=== PATIENT | female | born 1990 | race Caucasian/White ===

== ENCOUNTER 2016-09-07 14:44 | Emergency (ER) | payer MEDICAID ==
[2016-04-23 07:43] VITALS: BMI 21.4
[~2016-09-07 14:44] MED LIST: PERCOCET 5-3251 TAB PO
== END 2016-09-07 16:32 | disposition left against medical advice (07) ==
LOC: D.ER 14:44
DX: S69.91XA Unspecified injury of right wrist, hand and finger(s), initial encounter (principal); X58.XXXA Exposure to other specified factors, initial encounter; Y93.9 Activity, unspecified; Y92.9 Unspecified place or not applicable

== ENCOUNTER 2016-11-14 13:06 | Emergency (ER) | payer MEDICAID ==
[2016-04-23 07:43] VITALS: BMI 21.4
== END 2016-11-14 16:44 | disposition home or self-care (01) ==
LOC: D.ER 13:06
DX: S93.401A Sprain of unspecified ligament of right ankle, initial encounter (principal); W22.8XXA Striking against or struck by other objects, initial encounter; Y93.89 Activity, other specified; Y92.019 Unspecified place in single-family (private) house as the place of occurrence of the external cause

== ENCOUNTER 2017-02-12 11:36 | Emergency (ER) | payer MEDICAID ==
[2016-04-23 07:43] VITALS: BMI 21.4
== END 2017-02-12 14:03 | disposition home or self-care (01) ==
LOC: D.ER 11:36
DX: S61.451A Open bite of right hand, initial encounter (principal); W55.01XA Bitten by cat, initial encounter

== ENCOUNTER 2017-03-10 10:10 | Emergency (ER) | payer MEDICAID ==
[2016-04-23 07:43] VITALS: BMI 21.4
== END 2017-03-10 11:24 | disposition home or self-care (01) ==
LOC: D.ER 10:10
DX: T24.102A Burn of first degree of unspecified site of left lower limb, except ankle and foot, initial encounter (principal); T24.101A Burn of first degree of unspecified site of right lower limb, except ankle and foot, initial encounter; X10.2XXA Contact with fats and cooking oils, initial encounter; Y93.G3 Activity, cooking and baking; Y92.010 Kitchen of single-family (private) house as the place of occurrence of the external cause; T22.10XA Burn of first degree of shoulder and upper limb, except wrist and hand, unspecified site, initial encounter; F17.200 Nicotine dependence, unspecified, uncomplicated

== ENCOUNTER 2017-06-14 15:35 | Emergency (ER) | payer MEDICAID ==
[2016-04-23 07:43] VITALS: BMI 21.4
[2017-06-14 16:39] LABS: BASOPHILS 0.3 % (0-2); EOSINOPHILS 3.7 % (0-7); HEMATOCRIT 45.2 % (36.0-48.0); HEMOGLOBIN 15.5 g/dL (12-16); IMMATURE GRANULOCYTES 0.1 % (0-5); LYMPHOCYTES 21.3 % (15-50); MCHC 34.3 g/dL (31.0-37.0); MCV 90.4 fL (80.0-100.0); MEAN PLATELET VOLUME 9.8 fL (7.4-10.4); MONOCYTES 6.4 % (2-11); NEUTROPHILS 68.2 % (40-80); PLATELET COUNT 289 10x3/uL (130-400); RDW 12.5 % (11.5-14.5); WBC 7.6 10x3/uL (4.8-10.8)
[2017-06-14 16:39] LABS: APPEARANCE HAZY (CLEAR); BILIRUBIN NEGATIVE (NEGATIVE); COLOR YELLOW (YELLOW); GLUCOSE NEGATIVE (NEGATIVE); KETONE NEGATIVE (NEGATIVE); NITRITE NEGATIVE (NEGATIVE); PROTEIN NEGATIVE (NEGATIVE); SPECIFIC GRAVITY 1.015 (1.005-1.020); UROBILINOGEN NORMAL (NORMAL)
[2017-06-14 16:41] LABS: BACTERIA FEW /hpf (NONE SEEN); EPITHELIAL CELLS 25-50 /hpf (0-5); WHITE CELLS - URINE 0-5 /hpf (0-5)
[2017-06-14 16:41] LABS: HCG SERUM POSITIVE (NEGATIVE)
[2017-06-16] MEDS ORDERED: ZOVIRAX800 MG PO (14:07)
[2017-06-16] MEDS ORDERED: NORCO 7.5/325 T1 TA1 PO (14:07)
[2017-07-02] MEDS ORDERED: TYLENOL #4 W/CO1 TAB PO (12:12)
== END 2017-06-14 18:50 | disposition home or self-care (01) ==
LOC: D.ER 15:35
PROVIDERS: Emergency Medicine
DX: O03.9 Complete or unspecified spontaneous abortion without complication (principal); R10.30 Lower abdominal pain, unspecified

== ENCOUNTER 2017-06-17 05:31 | Day surgery (SDC) | payer MEDICAID ==
[~2017-06-17 05:31] MED LIST changes: +NORCO 7.5/325 T1 TA1 PO; +ZOVIRAX800 MG PO
[2017-06-17 06:18] VITALS: BP 95/63; BMI 20.2
--- NOTE | 2017-06-17 11:01 | NUR ---
DR TAYLOR CALLED, ORDERS RECEIVED. TORADOL 30MG IVP GIVEN
--- NOTE | 2017-06-17 11:20 | NUR ---
STATES PAIN IS BETTER AND WANTS TO GO HOME. IV REMOVED INTACT. DISCHARGE INSTRUCTIONS AND RX GIVEN, VOICED UNDERSTANDING.
--- NOTE | 2017-06-19 10:35 | OP ---
PATIENT NAME: CHUCK SULLIVAN MEDICAL RECORD: [id number] :86 LOCATION:[facility] ADMISSION DATE: SURGEON: SASCHA TAYLOR MD DATE OF OPERATION: 06/17/2017 PREOPERATIVE DIAGNOSIS: Missed . POSTOPERATIVE DIAGNOSIS: Missed . PROCEDURE: Dilation and evacuation. SURGEON: Sascha Taylor MD ANESTHESIOLOGIST: Geovany Howard MD ANESTHESIA: General anesthetic with endotracheal intubation. FINDINGS: Uterus is approximately 10-week size. Cervical os is dilated, easily accommodate a #9 curved suction curet. Scant to moderate amounts of products of conception removed at the time of curettage. SPECIMEN REMOVED: Products of conception. SPECIMEN DISPOSITION: Pathology. ESTIMATED BLOOD LOSS: Less than or equal to 50 cc. FLUIDS: 600 cc of lactated Ringer's. URINE OUTPUT: Quantity sufficient void prior to the procedure. COMPLICATIONS: None. DRAINS: None. INDICATIONS: The patient is a 26-year-old G3, para 2-0-0-2 at approximately 9 weeks' gestation with known missed . The patient had increased bleeding and cramping and was consented for dilation and evacuation. DESCRIPTION OF PROCEDURE: After informed consent was assured, the patient was taken to the operating room where anesthetic is obtained. The patient was placed in Ravindra stirrups and prepped and draped in usual sterile fashion. Weighted speculum was introduced and the cervix grasped with a single tooth tenaculum. The cervix is noted to be dilated and easily accommodated a #9 curved suction curet, which was passed to the fundus and suction applied. After several passes products of conceptions were removed. A #2 sharp curette was performed with good cry throughout. A single pass with the suction device removed all remaining clot and debris. The patient now has a single tooth tenaculum removed and ring forceps applied for hemostasis. The speculum was removed from the vagina. Sponge, lap and needle counts correct times 2. TRANSINT:[id number] Voice Confirmation ID: [id number] DOCUMENT ID: [id number] OPERATIVE REPORT [id number] LAURIECHUCK SASCHA TAYLOR MD at 1035 CC: [id number] DICTATION DATE: 06/17/17 0809 CLINIC CLERK: 06/17/17 1136 [facility] 06/17/17 [facility] [address] [place] [address]
[2017-07-02] MEDS ORDERED: TYLENOL #4 W/CO1 TAB PO (12:12)
== END 2017-06-17 11:20 | disposition home or self-care (01) ==
LOC: D.PAN → D.OPS 05:31 → D.PAN 07:30 → D.OPS 07:30
DX: O02.1 Missed abortion (principal); F17.200 Nicotine dependence, unspecified, uncomplicated; Z01.812 Encounter for preprocedural laboratory examination

== ENCOUNTER 2017-06-21 16:27 | Emergency (ER) | payer MEDICAID ==
[2017-07-02] MEDS ORDERED: TYLENOL #4 W/CO1 TAB PO (12:12)
== END 2017-06-21 17:00 | disposition left against medical advice (07) ==
LOC: D.ER 16:27
DX: Z02.9 Encounter for administrative examinations, unspecified (principal)

== ENCOUNTER 2017-07-05 05:20 | Day surgery (SDC) | payer MEDICAID ==
[2017-07-02 12:32] LABS: BASOPHILS 0.4 % (0-2); EOSINOPHILS 4.7 % (0-7); HEMATOCRIT 37.3 % (36.0-48.0); HEMOGLOBIN 12.3 g/dL (12-16); LYMPHOCYTES 31.6 % (15-50); MCH 30.2 pg (26.0-34.0); MCV 91.6 fL (80.0-100.0); MEAN PLATELET VOLUME 9.3 fL (7.4-10.4); MONOCYTES 5.7 % (2-11); NEUTROPHILS 57.6 % (40-80); PLATELET COUNT 295 10x3/uL (130-400); RBC 4.07 10x6/uL (4.00-5.40); RDW 12.3 % (11.5-14.5); WBC 4.7 10x3/uL (4.8-10.8)
[~2017-07-05 05:20] MED LIST changes: +TYLENOL #4 W/CO1 TAB PO
[2017-07-05 06:09] VITALS: BP 113/56; BMI 20.2
[2017-07-05 06:21] LABS: HCG URINE NEGATIVE (NEGATIVE)
[2017-07-05] MEDS ORDERED: PERCOCET 5-3251 TAB PO (10:20)
--- NOTE | 2017-07-05 10:20 | NUR ---
DISCHARGE INSTRUCTIONS REVIEWED WITH PATIENT AND SIGNIFICANT OTHER, PATIENT DISCHARGED HOME VIA WHEELCHAIR TO PRIVATE VEHICLE WITH SIGNIFICANT OTHER
--- NOTE | 2017-07-09 12:10 | OP ---
PATIENT NAME: CHUCK MELARA MEDICAL RECORD: [id number] :86 [facility] ADMISSION DATE: SURGEON: SASCHA TAYLOR MD DATE OF OPERATION: 07/05/2017 PREOPERATIVE DIAGNOSIS: Pelvic pain. POSTOPERATIVE DIAGNOSES: 1. Pelvic pain. 2. Active endometriosis. 3. Pelvic adhesive disease. 4. Right ovarian cyst. PROCEDURES PERFORMED: 1. Diagnostic laparoscopy. 2. Fulguration of peritoneal endometriosis. 3. Right cystectomy. 4. Lysis of adhesions. SURGEON: Sascha Taylor MD ANESTHESIOLOGIST: Geovany Howard MD ANESTHESIA: General anesthetic with endotracheal intubation. FINDINGS: A 3 cm simple cyst noted on the right ovary. Active endometriosis in the cul-de-sac. Adhesions of the large bowel to the right pelvic side wall. Ovaries are unremarkable as well as the tubes. The uterus is noted to be retroverted. SPECIMENS REMOVED: None. SPECIMEN Disposition: None applicable. ESTIMATED BLOOD LOSS: Minimal. FLUIDS: 600 of normal lactated Ringer's. URINE OUTPUT: Quantity sufficient with cath prior to procedure. INDICATIONS: The patient is a 26-year-old female recently status post incomplete with a D&E. The patient has reported increasing pelvic pain. This pain predates the miscarriage. Pain is intensified. She is requesting narcotics. Small cyst is noted on the ultrasound. The patient was taken to the operating room and consented for diagnostic laparoscopy and any indicated. DESCRIPTION OF PROCEDURE: After informed consent was assured, the patient was taken to the operating room where anesthetic is obtained. She is supine on the table and prepped and draped after draining her bladder. An incision was made in the umbilicus to accommodate a 5-mm bladeless trocar, which is inserted without difficulty and pneumoperitoneum developed. Accessory ports now placed in the midline left lower quadrant. A blunt probe was used to manipulate the bowel free the pelvis with the patient in Trendelenburg position. The cul-de-sac was inspected. No active endometriosis discovered. Using a OPERATIVE REPORT [id number] GERMÁNValerioCHUCK monopolar hook, this endometriosis is cauterized. The right ovary is now grasped at the hilum and the capsule overlying the cystic mass is opened. The cyst is dissected free and the edges of the dissection cauterized to obtain hemostasis. Pelvis is copiously irrigated and irrigant removed. Inspection of the abdomen reveals are free liver edge and adhesions of the large bowel to the right pelvic sidewall. These were taken down, taken the hook and going along the edge of the abdominal wall. After the adhesions were taken down, the pelvis again was inspected. Adequate hemostasis is noted and the pneumoperitoneum was released as accessory trocars were removed. Primary trocars were removed and all sites closed with Monocryl and Dermabond. Sponge, lap and needle count is correct times 2 at the close of this procedure. TRANSINT:[id number] Voice Confirmation ID: [id number] DOCUMENT ID: [id number] SASCHA TAYLOR MD at 1210 CC: [id number] DICTATION DATE: 07/05/17 0835 CARPET TECHNICIAN: 07/05/17 1026 [facility] 07/05/17 [facility] [address] [place] [address]
== END 2017-07-05 10:20 | disposition home or self-care (01) ==
LOC: D.PAN 05:20 → D.OPS 07:30 → D.PAN 10:20
PROVIDERS: Obstetrics & Gynecology
DX: N80.3 Endometriosis of pelvic peritoneum (principal); N83.291 Other ovarian cyst, right side; N85.4 Malposition of uterus; N73.6 Female pelvic peritoneal adhesions (postinfective); Z01.812 Encounter for preprocedural laboratory examination

== ENCOUNTER 2017-07-23 17:05 | Emergency (ER) | payer MEDICAID ==
[2017-07-23 18:03] LABS: BASOPHILS 0.5 % (0-2); EOSINOPHILS 5.5 % (0-7); HEMATOCRIT 41.5 % (36.0-48.0); HEMOGLOBIN 13.9 g/dL (12-16); LYMPHOCYTES 22.7 % (15-50); MCH 29.8 pg (26.0-34.0); MCHC 33.5 g/dL (31.0-37.0); MCV 89.1 fL (80.0-100.0); MEAN PLATELET VOLUME 9.9 fL (7.4-10.4); MONOCYTES 11.1 % (2-11); NEUTROPHILS 60.2 % (40-80); PLATELET COUNT 252 10x3/uL (130-400); RBC 4.66 10x6/uL (4.00-5.40); RDW 12.4 % (11.5-14.5); WBC 3.8 10x3/uL (4.8-10.8)
[2017-07-23 18:28] LABS: HCG SERUM NEGATIVE (NEGATIVE)
== END 2017-07-23 23:03 | disposition home or self-care (01) ==
LOC: D.ER 17:05
PROVIDERS: Family Medicine
DX: N93.9 Abnormal uterine and vaginal bleeding, unspecified (principal); F17.200 Nicotine dependence, unspecified, uncomplicated

== ENCOUNTER 2017-08-08 16:59 | Emergency (ER) | payer MEDICAID ==
[2017-08-08 17:46] LABS: BASOPHILS 0.6 % (0-2); EOSINOPHILS 1.7 % (0-7); HEMATOCRIT 43.3 % (36.0-48.0); HEMOGLOBIN 14.4 g/dL (12-16); IMMATURE GRANULOCYTES 0.1 % (0-5); LYMPHOCYTES 27.7 % (15-50); MCH 29.4 pg (26.0-34.0); MCHC 33.3 g/dL (31.0-37.0); MCV 88.5 fL (80.0-100.0); MEAN PLATELET VOLUME 9.6 fL (7.4-10.4); NEUTROPHILS 62.9 % (40-80); RBC 4.89 10x6/uL (4.00-5.40); RDW 12.5 % (11.5-14.5)
[2017-08-08 17:51] LABS: APPEARANCE HAZY (CLEAR); BILIRUBIN NEGATIVE (NEGATIVE); COLOR YELLOW (YELLOW); GLUCOSE NEGATIVE (NEGATIVE); KETONE NEGATIVE (NEGATIVE); NITRITE NEGATIVE (NEGATIVE); PLATELET COUNT 388 10x3/uL (130-400); PROTEIN TRACE mg/dL (NEGATIVE); UROBILINOGEN NORMAL (NORMAL)
[2017-08-08 17:57] LABS: BACTERIA MANY /hpf (NONE SEEN); HYALINE CAST OCC /lpf (NONE SEEN); RED CELLS - URINE OCC /hpf (0-5); WHITE CELLS - URINE 25-50 /hpf (0-5)
[2017-08-08 18:05] LABS: ALBUMIN 4.3 g/dL (3.4-5.0); ALKALINE PHOSPHATASE 94 U/L (46-116); ALT (SGPT) 11 U/L (10-68); AMYLASE - SERUM 94 U/L (25-115); BILIRUBIN - TOTAL 0.14 mg/dL (0.2-1.3); CALC OSMOLALITY 282 mosm/kg (275-300); CALCIUM 8.9 mg/dL (8.5-10.1); CARBON DIOXIDE 27.4 mmol/L (21.0-32.0); CHLORIDE - SERUM 105 mmol/L (98-107); CREATININE - SERUM 0.7 mg/dL (0.6-1.3); GLUCOSE 84 mg/dL (74-106); LIPASE 132 U/L (73-393); POTASSIUM - SERUM 3.7 mmol/L (3.5-5.1); PROTEIN - SERUM 8.1 g/dL (6.4-8.2); SODIUM 142 mmol/L (136-145); UREA NITROGEN 15 mg/dL (7-18); eGFR NON AFRICAN AMERICAN > 90 mL/min (90-120)
[2017-08-08 20:15] LABS: UDS - AMPHET NEGATIVE QUAL (NEGATIVE); UDS - BARB NEGATIVE QUAL (NEGATIVE); UDS - BENZO NEGATIVE QUAL (NEGATIVE); UDS - COCAINE NEGATIVE QUAL (NEGATIVE); UDS - OPIATE POSITIVE QUAL (NEGATIVE); UDS - PCP NEGATIVE QUAL (NEGATIVE); UDS - THC POSITIVE QUAL (NEGATIVE)
== END 2017-08-08 19:15 | disposition home or self-care (01) ==
LOC: D.ER 16:59
PROVIDERS: Family Medicine
DX: R10.9 Unspecified abdominal pain (principal); N39.0 Urinary tract infection, site not specified; F17.200 Nicotine dependence, unspecified, uncomplicated

== ENCOUNTER 2017-09-04 14:18 | Emergency (ER) | payer MEDICAID | END 2017-09-04 16:48 | disposition home or self-care (01) | LOC: D.ER 14:18 | DX: K08.89 Other specified disorders of teeth and supporting structures (principal); K04.7 Periapical abscess without sinus ==